=== PATIENT | female | born 1995 | race Asian ===

== ENCOUNTER 2024-12-03 15:11 | Emergency (ER) | payer OTHER, SELFPAY ==
[2024-12-03 15:16] VITALS: BP 121/85
--- NOTE | 2024-12-03 16:53 | ED.GENMED ---
History of Present Illness
General
Chief Complaint: Abdominal Pain
Time Seen by Provider: 12/03/24 15:57
History of Present Illness
History of Present Illness:
29-year-old female with history of interstitial cystitis, GERD, bipolar disorder presenting to the emergency department for fever and lower abdominal pain. Patient reports symptoms for the past 5 days. Reports fevers as high of 104. She notes
that the pain is in the right lower quadrant. Also notes some vaginal discharge, however does note frequent history of BV. She took test as well, it was negative. Denies any concern for STD. Denies any abdominal surgeries in the past.
Reports 1 episode of vomiting several days ago. Denies any significant changes in stool. Denies any known sick contacts. She has been following with her primary care doctor, reports outpatient blood work that showed elevated white blood cell
count. Denies additional acute medical complaints
Past History
Past History
ED Past Medical History: GERD and Other (Bipolar, anxiety, IBS, interstitial cystitis)
Social History
Tobacco: Non-smoker
Phy Exam
Physical Exam
Physical Exam:
General: Well-appearing, no clinical signs of dehydration, nontoxic and in no acute distress
HEENT: protecting airway
Neck: appears supple
CV: Normal heart rate, regular rhythm
Resp: No accessory muscle use, no increased work of breathing, lungs clear to auscultation bilaterally
Abd: Soft and non-distended, focal tenderness to the right lower quadrant without rebound or guarding
Extremities: No deformities, no swelling, no erythema
Neuro: alert, no focal neurologic deficit
: Pelvic exam performed, moderate amount of white discharge, malodorous
Rectal: deferred
Psych: Normal affect
Skin: Intact
Course
Orders/Labs/Results
Orders:
Orders
12/03/24 16:26
0.9% Sodium Chloride 1000 ml [Nss] 1,000 ml IV BOLUS
Iohexol [Omnipaque] See Protocol PO NOW STA
Ketorolac [Toradol] 15 mg IV NOW STA
12/03/24 16:27
CT Abd/pel W Iv And Oral Contr Urgent
Comment:
Reason For Exam: RLQ pain
Test Result ONCE
12/03/24 17:18
Complete Blood Count/With Diff Urgent
Comprehensive Metabolic Panel Urgent
HCG, Serum Qualitative Screen Urgent
Lactic Acid Urgent
Lipase Urgent
12/03/24 17:29
Chlamydia/GC by PCR Urgent
LUIS Source: ENCX
Specimen Description:
Date Specimen was Collected: 12/03/24
Time Specimen was Collected: 17:27
Genital Culture Urgent
LUIS Source: Cervix
Specimen Description:
Date Specimen was Collected: 12/03/24
Time Specimen was Collected: 17:27
Trichomonas - Wet Prep Urgent
LUIS Source: Vagina
Specimen Description:
Date Specimen was Collected: 12/03/24
Time Specimen was Collected: 17:27
12/03/24 19:12
Urinalysis Reflex To Culture Urgent
Date Specimen was Collected: 12/03/24
Time Specimen was Collected: 18:58
Urine Microscopic Reflex Cult Urgent
Urine Culture Urgent
LUIS Source: U
Specimen Description:
Date Specimen was Collected: 12/03/24
Time Specimen was Collected: 18:58
12/03/24 20:28
Ketorolac [Toradol] 15 mg IV NOW STA
12/03/24 21:13
Cefepime HCl [Maxipime] 2,000 mg IV NOW STA
MetroNIDAZOLE [Flagyl] 500 mg PO NOW STA
Abnormal Lab Results
12/03/24 12/03/24
17:18 19:12
RBC 3.79 L 10^6/uL
(4.20-5.40)
MCH 33.0 H pg
(27.0-31.0)
Absolute Neuts (auto) 6.6 H 10^3/uL
(1.4-6.5)
Absolute Monos (auto) 0.9 H 10^3/uL
(0.1-0.6)
BUN 5 L mg/dl
(7-17)
Creatinine 0.5 L mg/dL
(0.6-1.0)
AST 42 H U/L
(14-36)
ALT 39 H U/L
(0-35)
Urine Ketones 2+ A
(Negative)
Urine Nitrite (Reflex) Positive A
(Negative)
Leukocyte Esterase Rfl 1+ A
(Negative)
Urine WBC (Reflex) 11-15 A /HPF
(0-5)
Urine Bacteria (Reflex) Many A
(Negative)
12/03/24 17:18
12/03/24 17:18
Vital Signs
Initial and Last Documented VS:
Initial Vital Signs
Temp Pulse Resp BP Pulse Ox
98.3 F 78 16 121/85 99
12/03/24 15:16 12/03/24 15:16 12/03/24 15:16 12/03/24 15:16 12/03/24 15:16
Last Documented Vital Signs
Temp Pulse Resp BP Pulse Ox
98.8 F 80 18 131/85 99
12/03/24 16:59 12/03/24 16:59 12/03/24 16:59 12/03/24 21:00 12/03/24 21:00
MDM/Problems Addressed
MDM/Problems Addressed:
29-year-old female presenting for 5 days of lower abdominal pain and fever. Vital signs on arrival are normal, however patient does note that she had Tylenol prior to arrival due to fever.
On exam patient is resting comfortably, nontoxic, no acute distress. Patient with focal right lower quadrant tenderness with concern for acute appendicitis in the setting of fever and worsening pain. Patient notes that she struck that area of her
abdomen with a doorknob and is concern for some sort of traumatic injury. No signs of trauma, suspect less likely given fevers. She also notes some pelvic discharge so ovarian pathology is a consideration including tubo-ovarian abscess versus PID.
No significant discomfort on pelvic exam, culture sent. Urinalysis also sent for rule out UTI or . Will plan for CT imaging of the abdomen pelvis with IV and oral contrast to rule out acute appendicitis. Toradol administered for pain.
21:20 -patient's urine shows evidence of UTI. Labs otherwise reassuring. CT is consistent with right pyelonephritis, which is likely etiology of patient's right-sided pain. Normal-appearing appendix. On reassessment, vitals remained stable, no
emesis. Options given to patient regarding discharge with antibiotics versus admission depending on how she is feeling. Patient would prefer to go home which I feel is reasonable given her hemodynamic stability. 1 dose of cefepime ministered in
the ER. Will start patient on Keflex. Regarding patient's vaginal discharge, appears consistent with BV. Will also start her on metronidazole. Patient's primary care doctor, Dr. Rob, was called and updated. He will follow-up with her in the
office. Strict return precautions communicated to patient and father at bedside who verbalized understanding.
*Critical Care Note
Total Time (30-74mins, 75-104mins- exclusive of procedures): Not Applicable
ED Attending Note
-
Portions of this chart may have been created with voice recognition software.� Occasional wrong word or��sound alike� substitutions may have occurred due to the inherent limitations of voice recognition software.
Discharge Plan
Departure
Prescriptions:
No Action
pantoprazole 40 MG tablet,delayed release (DR/EC)
40 mg PO BID Qty: 20 0RF
ondansetron 4 mg Tablet,Disintegrating
4 mg PO TIDPRN PRN (Reason: nausea/vomiting) Qty: 14 0RF
Referrals:
Sidney Rob MD [Family Provider] -
Interventions
Interventions:
*Risk Screen - Suicide Last Done: 12/03/24 15:16
*General Assessment Last Done: 12/03/24 16:55
*Neglect/Abuse Screening Last Done: 12/03/24 15:16
*ED- Fall Risk Assessment Last Done: 12/03/24 16:55
*ED COVID-19 Vaccine History Last Done: 12/03/24 16:55
MS-Bgxsms-Pifmyapnkb Assessment Last Done: 12/03/24 16:55
Discharge Date and Time
Print Language: BAHAMIAN
[2024-12-03 16:55] VITALS: BMI 21.6
[2024-12-03 16:59] VITALS: BP 118/74
[2024-12-03] MEDS: TORADOL 15 MG IV (17:26)
[2024-12-03] MEDS: OMNIPAQUE 50 ML PO (17:26)
[2024-12-03] MEDS: NSS 1000 IV (17:26)
[2024-12-03 17:29] LABS: % Basophils 0.2 % (0-2); % Eosinophils 0.4 % (0-6); % Immature Granulocytes 0.4 % (0-0.5); % Lymphocytes 21.6 % (20.5-51.1); % Monocytes 9.2 % (1.7-9.3); % Neutrophils 68.2 % (42.2-75.2); Absolute Lymphocytes 2.1 10^3/uL (1.2-3.4); Absolute Monocytes 0.9 10^3/uL (0.1-0.6); Absolute Neutrophils 6.6 10^3/uL (1.4-6.5); Hemoglobin 12.5 g/dL (12.0-16.0); Mean Corp Hgb Conc. 33.8 g/dL (33.0-37.0); Mean Corpuscular Volume 97.6 fL (81.0-99.0); Mean Platelet Volume 8.3 fL (7.4-10.4); Nucleated Red Blood Cells % 0 %; Platelet Count 370 10^3/uL (130-400); Red Blood Cell Count 3.79 10^6/uL (4.20-5.40); Red Cell Dist. Width 12.6 % (11.5-14.5); White Blood Cell Count 9.7 10^3/uL (4.8-10.8)
[2024-12-03 17:36] LABS: HCG, Serum Qualitative Screen Negative
[2024-12-03 17:39] LABS: Lactic Acid 1.1 mmol/L (0.7-2.0)
[2024-12-03 17:40] LABS: ALT (SGPT) 39 U/L (0-35); AST (SGOT) 42 U/L (14-36); Albumin 3.9 g/dl (3.5-5.0); Alkaline Phosphatase 55 U/L (38-126); Blood Urea Nitrogen 5 mg/dl (7-17); Calcium 9.4 mg/dl (8.4-10.2); Carbon Dioxide 26 mmol/L (22-30); Chloride 105 mmol/L (98-107); Estimated Creatinine Clearance 114 ml/min; Glucose 93 mg/dl (70-99); Lipase 30 U/L (23-300); Potassium 3.9 mmol/L (3.5-5.1); Sodium 139 mmol/L (135-145); Total Bilirubin 0.5 mg/dl (0.2-1.3); Total Protein 6.7 g/dl (6.3-8.2); eGFR > 60.00
[2024-12-03 19:19] LABS: Urine Albumin Negative (Neg - Trace); Urine Bilirubin Negative (Negative); Urine Character Clear (Clear); Urine Color Yellow; Urine Glucose Negative (Negative); Urine Ketone 2+ (Negative); Urine Leukocyte 1+ (Negative); Urine Nitrite Positive (Negative); Urine Occult Blood Negative (Negative); Urine Urobilinogen Negative (Neg - 1+)
[2024-12-03 19:29] LABS: Urine Bacteria Many (Negative); Urine Red Blood Cell 0-2 /HPF (0-2)
[2024-12-03 20:42] VITALS: BP 127/86
[2024-12-03 21:00] VITALS: BP 131/85
[2024-12-03] MEDS: FLAGYL 500 MG PO (21:23)
[2024-12-03] MEDS: MAXIPIME 2000 MG IV (21:24)
== END 2024-12-03 21:44 | disposition home or self-care (01) ==
LOC: EMR 15:11
PROVIDERS: EMERGENCY PHYSICIAN Student in an Organized Health Care Education/Training Program; FAMILY PHYSICIAN Internal Medicine
DX: N12 Tubulo-interstitial nephritis, not specified as acute or chronic (principal); N89.8 Other specified noninflammatory disorders of vagina; K21.9 Gastro-esophageal reflux disease without esophagitis
CPT/HCPCS: 96365; 96375; 96361; 99284; 74177; 80053; 81003; 81015; 83605; 83690; 84703; 85025; 87070; 87086; 87088; 87186; 87210; 87491; 87591; Q9967